=== PATIENT | male | born 2000 | race American Indian/Alaskan Native ===

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

== ENCOUNTER 2024-02-28 14:51 | Emergency (ER) | payer OTHER ==
[~2024-02-28] VITALS: Ht 182.9 cm; Wt 57.5 kg
[~2024-02-28 14:51] MED LIST changes: +AMOX TR-K CLV1 EAC1 PO
[2024-02-28] MEDS ORDERED: AMOX TR-K CLV1 EAC1 PO (16:26)
[2024-02-28] MEDS ORDERED: AMOXICILLIN/CLAVULANATE K 875 MG TAB PO ONE (16:30)
[2024-02-28 16:36] VITALS: BP 106/64
== END 2024-02-28 16:36 | disposition home or self-care (01) ==
LOC: ED 14:51
DX: S61.452A Open bite of left hand, initial encounter (principal); S61.451A Open bite of right hand, initial encounter; S80.211A Abrasion, right knee, initial encounter; S60.512A Abrasion of left hand, initial encounter; S50.811A Abrasion of right forearm, initial encounter; W54.0XXA Bitten by dog, initial encounter
CPT/HCPCS: 99283